=== PATIENT | female | born 1955 | race Caucasian/White ===

== ENCOUNTER 2017-02-06 14:46 | Emergency (ER) | payer MEDICAID ==
[2017-02-06] MEDS ORDERED: Sodium Chloride 0.9% 2.5 ML Syringe FLUSH PRN (15:00)
[2017-02-06] MEDS ORDERED: Sodium Chloride 0.9% 10 ML Syringe FLUSH PRN (15:00)
[2017-02-06] MEDS ORDERED: Sodium Chloride 0.9% 1,000 ML IV ONE (15:01)
--- NOTE | 2017-02-06 15:02 | EDM.PDOC ---
ED HPI GENERAL MEDICAL PROBLEM - General Stated Complaint: FALL Time Seen by Provider: 02/06/17 14:54 Source of Information: Reports: Patient History Limitations: Reports: No limitations - History of Present Illness INITIAL COMMENTS - FREE TEXT/NARRATIVE: History of present illness: [] Patient was brought in by ambulance after a ground-level fall complaining of right femur pain. Patient lives in [facility] and came to [place] to be with her family for [employer]. She has a right BKA and was hopping out onto the porch to smoke a cigarette without any walking assistance and she lost her balance and fell. There was no loss of consciousness. She denies any other injuries. Review of systems: As per history of present illness and below otherwise all systems reviewed and negative. Past medical history: As per history of present illness and as reviewed below otherwise noncontributory. Surgical history: As per history of present illness and as reviewed below otherwise noncontributory. Social history: No reported history of drug or alcohol abuse. Family history: As per history of present illness and as reviewed below otherwise noncontributory. Physical exam: General: Well developed, well nourished in NAD HEENT: Atraumatic, normocephalic, pupils reactive, negative for conjunctival pallor or scleral icterus, mucous membranes moist, throat clear, neck supple, nontender, trachea midline. Lungs: Clear to auscultation, breath sounds equal bilaterally, chest nontender. Heart: S1S2, regular, negative for clicks, rubs, or JVD. Abdomen: Soft, nondistended, nontender. Negative for masses or hepatosplenomegaly. Negative for costovertebral tenderness. Patient has an implanted insulin pump. Pelvis: Stable nontender. Genitourinary: Deferred. Rectal: Deferred. Extremities: Right BKA, tenderness distal femur no noted swelling or ecchymosis. Stump is pink with good capillary refill Neuro: Awake, alert, oriented. Cranial nerves II through XII unremarkable. Cerebellum unremarkable. Motor and sensory unremarkable throughout. Exam nonfocal. Diagnostics: [] X-ray shows a comminuted distal femur fracture Therapeutics: [] Impression: [] Comminuted Right distal Femur fracture Plan: [] Transfer to [place] to Dr. Edouard and who accepts the patient. Definitive disposition and diagnosis as appropriate pending reevaluation and review of above. Right Leg Pain Score (Numeric/FACES): 9 - Related Data Allergies Allergy/AdvReac Type Severity Reaction Status Date / Time procaine [From Novocain] Allergy Severe Anaphylactic Verified 02/06/17 16:53 Shock atorvastatin [From Lipitor] Allergy Cannot Verified 02/06/17 16:53 Remember ezetimibe [From Zetia] Allergy Cannot Verified 02/06/17 16:53 Remember gabapentin Allergy Cannot Verified 02/06/17 16:53 Remember hydromorphone Allergy Cannot Verified 02/06/17 16:53 Remember Iodine and Iodide Containing Allergy Cannot Verified 02/06/17 16:53 Produc Remember lidocaine Allergy Cannot Verified 02/06/17 16:53 Remember meperidine [From Demerol] Allergy Nausea Verified 02/06/17 16:53 NSAIDS (Non-Steroidal Allergy Cannot Verified 02/06/17 16:53 Anti-Inflamma Remember Penicillins Allergy Cannot Verified 02/06/17 16:53 Remember rosuvastatin Allergy Cannot Verified 02/06/17 16:53 Remember spider venom Allergy Cannot Verified 02/06/17 16:53 Remember venom-honey bee Allergy Anaphylactic Verified 02/06/17 16:53 Shock venom-wasp Allergy Anaphylactic Verified 02/06/17 16:53 Shock plastic Allergy Cannot Uncoded 02/06/17 16:53 Remember tape Allergy Cannot Uncoded 02/06/17 16:53 Remember Home Meds: Home Meds Acetaminophen/Codeine [Take Home: Acetam/Codeine 300-30 MG, 5 Pack] 02/06/17 [ History] Aspirin [Halfprin] 02/06/17 [History] Chlorthalidone 25 mg PO DAILY 02/06/17 [History] Clopidogrel [Plavix] 75 mg PO DAILY 02/06/17 [History] Famotidine 40 mg PO DAILY 02/06/17 [History] Folic Acid 1 mg PO DAILY 02/06/17 [History] Insulin Aspart Protam & Aspart [Novolog Mix 70-30 Flexpen Syrn] 100 unit SQ [History] Magnesium Oxide [Magnesium] 400 mg PO 02/06/17 [History] Metoprolol Tartrate [Lopressor] 25 mg PO Q12HR 02/06/17 [History] diphenhydrAMINE [Benadryl] 25 mg PO ONETIME 02/06/17 [History] ED ROS GENERAL - Review of Systems Review Of Systems: See Below (See history of present illness) ED EXAM, GENERAL - Physical Exam Exam: See Below (See history of present illness) Course - Vital Signs Last Recorded V/S: Last Vital Signs Temp 37.0 C 02/06/17 17:54 Pulse 87 02/06/17 17:54 Resp 16 02/06/17 17:54 BP 133/61 02/06/17 17:54 Pulse Ox 99 02/06/17 17:54 - Orders/Labs/Meds Orders: Active Orders 24 hr Category Date Time Status Femur Min 2V Rt [CR] Stat Exams 02/06/17 15:01 Taken UA W/MICROSCOPIC [URIN] Stat Lab 02/06/17 15:02 Uncollected Sodium Chloride 0.9% [Saline Flush] Med 02/06/17 15:00 Active 10 ml FLUSH ASDIRECTED PRN Sodium Chloride 0.9% [Saline Flush] Med 02/06/17 15:00 Active 2.5 ml FLUSH ASDIRECTED PRN Peripheral IV Insertion Adult [OM.PC] Stat Oth 02/06/17 14:59 Ordered Medication Orders Sodium Chloride (Saline Flush) 10 ml FLUSH ASDIRECTED PRN PRN Reason: Keep Vein Open Last Admin: 02/06/17 16:17 Dose: 10 ml Sodium Chloride (Saline Flush) 2.5 ml FLUSH ASDIRECTED PRN PRN Reason: Keep Vein Open Last Admin: 02/06/17 16:16 Dose: 2.5 ml Labs: Laboratory Tests 02/06/17 02/06/17 02/06/17 Range/Units 15:03 15:03 15:35 WBC 9.81 (4.0-11.0) K/uL RBC 3.81 L (4.30-5.90) M/uL Hgb 9.3 L (12.0-16.0) g/dL Hct 30.2 L (36.0-46.0) % MCV 79.3 L (80.0-98.0) fL MCH 24.4 L (27.0-32.0) pg MCHC 30.8 L (31.0-37.0) g/dL RDW Std Deviation 46.6 (28.0-62.0) fl RDW Coeff of Cris 16 H (11.0-15.0) % Plt Count 336 (150-400) K/uL MPV 8.90 (7.40-12.00) fL Neut % (Auto) 58.9 (48.0-80.0) % Lymph % (Auto) 28.8 (16.0-40.0) % [place] % (Auto) 8.7 (0.0-15.0) % Eos % (Auto) 3.1 (0.0-7.0) % Baso % (Auto) 0.5 (0.0-1.5) % Neut # (Auto) 5.8 H (1.4-5.7) K/uL Lymph # (Auto) 2.8 H (0.6-2.4) K/uL [place]pton # (Auto) 0.9 H (0.0-0.8) K/uL Eos # (Auto) 0.3 (0.0-0.7) K/uL Baso # (Auto) 0.1 (0.0-0.1) K/uL Nucleated RBC % 0.0 /100WBC Nucleated RBCs # 0 K/uL ABG pH 7.431 (7.35-7.45) ABG pCO2 36 (35-45) mmHG ABG pO2 65 L (75-100) mmHG ABG HCO3 24 (22-26) mEq/L ABG Total CO2 22.7 ABG Base Excess -0.1 (-2.0-2.0) Sodium 139 (136-146) mmol/L Potassium 3.7 (3.5-5.1) mmol/L Chloride 103 (98-110) mmol/L Carbon Dioxide 24 (21-31) mmol/L BUN 21 (6.0-23.0) mg/dL Creatinine 1.5 (0.6-1.5) mg/dL Est Cr Clr Drug Dosing TNP Estimated GFR (MDRD) 35.0 ml/min Glucose 187 H (60-110) mg/dL Calcium 8.7 L (8.8-10.8) mg/dL Total Bilirubin 0.1 (0.1-1.5) mg/dL AST 15 (5-40) IU/L ALT 15 (8-54) IU/L Alkaline Phosphatase 75 (40-150) Total Protein 6.7 (6.0-8.0) g/dL Albumin 3.4 (3.4-4.8) g/dL Globulin 3.3 (2.0-3.5) g/dL Albumin/Globulin Ratio 1.0 L (1.3-2.8) Meds: Medications Generic Name Dose Route Start Last Admin Trade Name Freq PRN Reason Stop Dose Admin Sodium Chloride 10 ml 02/06/17 15:00 02/06/17 16:17 Saline Flush FLUSH 10 ml ASDIRECTED PRN Administration Keep Vein Open Sodium Chloride 2.5 ml 02/06/17 15:00 02/06/17 16:16 Saline Flush FLUSH 2.5 ml ASDIRECTED PRN Administration Keep Vein Open Discontinued Medications Generic Name Dose Route Start Last Admin Trade Name Freq PRN Reason Stop Dose Admin Sodium Chloride 1,000 mls @ 999 mls/hr 02/06/17 15:01 02/06/17 16:10 Normal Saline IV 02/06/17 16:01 999 mls/hr .Bolus ONE Administration Morphine Sulfate 4 mg 02/06/17 15:58 02/06/17 16:09 Morphine IVPUSH 02/06/17 15:59 4 mg ONETIME ONE Administration Morphine Sulfate 4 mg 02/06/17 17:00 02/06/17 17:16 Morphine IVPUSH 02/06/17 17:01 4 mg ONETIME ONE Administration Ondansetron HCl 4 mg 02/06/17 15:58 02/06/17 16:09 Zofran IVPUSH 02/06/17 15:59 4 mg ONETIME ONE Administration Departure - Departure Time of Disposition: 18:30 Disposition: DC/Tfer to Acute Hospital 02 Condition: good, fair Clinical Impression: Femur fracture, right Qualifiers: Encounter type: initial encounter Femur location: distal Fracture type: closed Fracture morphology: other fracture Qualified Code(s): S72.491A - Other fracture of lower end of right femur, initial encounter for closed fracture Referrals: PCP,Not In Area [Primary Care Provider] - Forms: Refusal of Exam and Treatment Additional Instructions: The following information is given to patients seen in the emergency department who are being discharged to home. This information is to outline your options for follow-up care. We provide all patients seen in our emergency department with a follow-up referral. The need for follow-up, as well as the timing and circumstances, are variable depending upon the specifics of your emergency department visit. If you don't have a primary care physician on staff, we will provide you with a referral. We always advise you to contact your personal physician following an emergency department visit to inform them of the circumstance of the visit and for follow-up with them and/or the need for any referrals to a consulting specialist. The emergency department will also refer you to a specialist when appropriate. This referral assures that you have the opportunity for follow-up care with a specialist. All of these measure are taken in an effort to provide you with optimal care, which includes your follow-up. Under all circumstances we always encourage you to contact your private physician who remains a resource for coordinating your care. When calling for follow-up care, please make the office aware that this follow-up is from your recent emergency room visit. If for any reason you are refused follow-up, please contact the [facility] Emergency Department at and asked to speak to the emergency department charge nurse. Patient transferred to [facility] secondary to patient request and all her physicians including vascular and orthopedic surgeons are there. - My Orders Last 24 Hours: My Active Orders 02/06/17 14:59 Peripheral IV Insertion Adult [OM.PC] Stat 02/06/17 15:00 Sodium Chloride 0.9% [Saline Flush] 10 ml FLUSH ASDIRECTED PRN Sodium Chloride 0.9% [Saline Flush] 2.5 ml FLUSH ASDIRECTED PRN 02/06/17 15:01 Femur Min 2V Rt [CR] Stat 02/06/17 15:02 UA W/MICROSCOPIC [URIN] Stat - Assessment/Plan Last 24 Hours: My Active Orders 02/06/17 14:59 Peripheral IV Insertion Adult [OM.PC] Stat 02/06/17 15:00 Sodium Chloride 0.9% [Saline Flush] 10 ml FLUSH ASDIRECTED PRN Sodium Chloride 0.9% [Saline Flush] 2.5 ml FLUSH ASDIRECTED PRN 02/06/17 15:01 Femur Min 2V Rt [CR] Stat 02/06/17 15:02 UA W/MICROSCOPIC [URIN] Stat
[2017-02-06 15:33] LABS: CHLORIDE,CL 103 mmol/L (98-110); SODIUM,NA 139 mmol/L (136-146)
[2017-02-06] MEDS ORDERED: Ondansetron 4 MG/2 ML SDV IVPUSH ONE (15:58)
[2017-02-06] MEDS ORDERED: Morphine 2 MG/ML Syringe IVPUSH ONE ×2 (15:58→17:00)
[2017-02-06 19:45] VITALS: BP 125/89
--- NOTE | 2017-02-08 10:46 | CR ---
EXAM DATE: 02/06/17 PATIENT'S AGE: 62 Patient: EDGAR BENTON Facility: [place], [place] Site . Site : 1955 Study: XRay Extremity Right femur [id number]/[id number] 4:58:49 PM Ordering Physician: Etienne Best Final Report: Portable right femur frontal and cross-table 4 images 2 VIEWS INDICATION: Trauma. Right below-knee amputation chronic. IMPRESSION: Comminuted fracture of the distal femur. A right below-knee amputation is present. Moderate angulation of the distal femoral fracture. Proximal femur is intact. Mild narrowing in the hip joint. Amputation stump is grossly unremarkable. Dictated by Wilbur Guerra MD @ Feb 06 2017 5:32PM (Electronic Signature) Report Signed by Proxy and Original Signed Document filed in the Medical Record. MTDD
== END 2017-02-06 19:00 ==
LOC: MW.ED 14:46
DX: S72.491A Other fracture of lower end of right femur, initial encounter for closed fracture (principal); Z79.02 Long term (current) use of antithrombotics/antiplatelets; Z79.899 Other long term (current) drug therapy; Z88.0 Allergy status to penicillin; Z88.8 Allergy status to other drugs, medicaments and biological substances; Z91.030 Bee allergy status; Z89.511 Acquired absence of right leg below knee; W18.30XA Fall on same level, unspecified, initial encounter
CPT/HCPCS: 36415; 36600; 73552; 80053; 82803; 85025; 96361; 96374; 96375; 96376; 99285; J2270; J2405; J7040; 99284